=== PATIENT | female | born 1955 | race Caucasian/White ===

== ENCOUNTER 2024-10-25 11:29 | Outpatient (CLI) | payer MEDICARE, OTHER, MEDICAID ==
--- NOTE | 2024-10-25 12:37 | RADIOLOGY REPORT ---
EXAM: DI KNEE, COMP 4 VW MIN CLINICAL INDICATION: PAIN IN BILATERAL KNEES TECHNIQUE: DI KNEE, COMP 4 VW MIN Comparison: None FINDINGS/IMPRESSION: There is no evidence of acute fracture or dislocation. Moderate bilateral tricompartmental joint space narrowing. Bilateral chondrocalcinosis. The alignment is anatomical. There is no radiopaque foreign body.
--- NOTE | 2024-10-25 12:37 | RADIOLOGY REPORT ---
EXAM: DI KNEE, COMP 4 VW MIN, DI KNEE, COMP 4 VW MIN CLINICAL INDICATION: PAIN IN BILATERAL KNEES TECHNIQUE: DI KNEE, COMP 4 VW MIN, DI KNEE, COMP 4 VW MIN Comparison: None FINDINGS/IMPRESSION: There is no evidence of acute fracture or dislocation. Moderate bilateral tricompartmental joint space narrowing. Bilateral chondrocalcinosis. The alignment is anatomical. There is no radiopaque foreign body.
== END 2024-10-25 23:59 | disposition home or self-care (01) ==
LOC: RAD 11:29
PROVIDERS: ATTEND Family Medicine
DX: M11.262 Other chondrocalcinosis, left knee (principal); M11.261 Other chondrocalcinosis, right knee; M25.561 Pain in right knee; M25.562 Pain in left knee
CPT/HCPCS: 73564

== ENCOUNTER 2025-01-18 06:01 | Day surgery (SDC) | payer MEDICARE, MEDICAID ==
[2025-01-17 11:17] LABS: MEAN PLATELET VOLUME 8.4 FL (7.4-10.4); RED CELL DISTRIBUTION WIDTH 17.6 % (11.5-14.5)
[2025-01-17 11:24] LABS: CREATININE 1.02 MG/DL (0.40-0.90); TOTAL CARBON DIOXIDE 27.6 MMOL/L (24-32); eGFR 53 ML/MIN
[2025-01-17 11:27] LABS: INR 1.2 INR
[~2025-01-18] VITALS: Ht 165.1 cm; Wt 99.8 kg
--- NOTE | 2025-01-18 06:36 | ELECTROCARDIOGRAPH REPORT ---
[facility] Test Date: 2025-01-18 Test Time: 06:30:29 Pat Name: ARLEN PANG Department: [facility] Patient ID: [facility]-[id number] Room: Gender: F Behavioral Intervention Specialist: WESLY : 1955 Requested By: LISANDRA ZARAGOZA Order Number: [id number] Reading MD: Dr. MATILDE Zaragoza Measurements Intervals [place] Rate: 61 P: 0 RI: 0 QRS: -6 QRSD: 103 T: 4 QT: 481 QTc: 485 Interpretive Statements Atrial fibrillation Low voltage, extremity leads Electronically Signed On 01-18-2025 16:41:[address] MATILDE Zaragoza Please click the below link to view image of tracing.
[2025-01-18 06:57] VITALS: BP 113/51; PULSE 59; RESP 16; TEMP 97.8; O2SAT 98
[2025-01-18] MEDS ORDERED: MIDAZolam 1mg/ml 10ml vial IV ONE (07:05)
[2025-01-18] MEDS ORDERED: normal saline 1000ml 1,000 ML IV SCH (07:05)
[2025-01-18] MEDS ORDERED: amiodarone 150mg/dext, iso-os 100 ML IV ONE (07:05)
[2025-01-18] MEDS ORDERED: atropine 0.1mg/ml 10ml syringe IV ONE (07:05)
[2025-01-18] MEDS ORDERED: morphine 10mg/ml inj. IV ONE (07:05)
[2025-01-18] MEDS ORDERED: ASPI-611 PO (07:13)
[2025-01-18] MEDS ORDERED: LISI10TA27 PO (07:13)
[2025-01-18] MEDS ORDERED: APIX5TAB3 PO (07:13)
[2025-01-18] MEDS ORDERED: SOTA80TA46 PO (07:13)
[2025-01-18] MEDS ORDERED: INSU100V64 SQ (07:14)
[2025-01-18] MEDS ORDERED: CHOL500049 PO (07:14)
[2025-01-18] MEDS ORDERED: INSU100I41 SQ (07:14)
[2025-01-18] MEDS ORDERED: METF-1203 PO (07:14)
[2025-01-18] MEDS ORDERED: GLIM4TAB7 PO (07:14)
[2025-01-18] MEDS ORDERED: PIOG15TA67 PO (07:14)
[2025-01-18] MEDS ORDERED: INUL1TAB4 PO (07:14)
[2025-01-18] MEDS ORDERED: ROSU40TA89 PO (07:14)
[2025-01-18] MEDS ORDERED: LEVO50TA8 PO (07:14)
[2025-01-18] MEDS ORDERED: midazolam 1 mg/ML 2ml injection ONE ×3 (07:55→08:19)
[2025-01-18] MEDS ORDERED: fentaNYL/PF 50MCG/1 ML 2ML syringe ONE (07:55)
[2025-01-18 08:01] VITALS: RESP 16; O2SAT 98
[2025-01-18] MEDS ORDERED: atropine 0.1mg/ml 10ml syringe ONE (08:21)
--- NOTE | 2025-01-18 08:45 | CARDIOLOGY REPORT ---
DATE OF SERVICE: 01/18/2025 DICTATING PHYSICIAN: MATILDE Nance MD [employer] [employer] CALENDER OPERATOR: Dr. Nance. PRIMARY PHYSICIAN: Dr. Eder Pham. INDICATION: The patient is a 69-year-old postmenopausal obese female with diabetes, hypertension, hyperlipidemia, sleep apnea, and aortic regurgitation with paroxysmal atrial fibrillation, which started back in 04/2023 with sotalol 80 b.i.d. She spontaneously converted to normal sinus rhythm; however, AFib recurred in 11/2024 when her sotalol was increased to 120 in the morning, 80 in the a.m. and the patient has decided to proceed with electrical cardioversion because of her symptoms. Risks, benefits, and alternative options were discussed. Informed consent was obtained. The patient appears to have some underlying sick sinus syndrome. She does have sinus bradycardia. DESCRIPTION OF PROCEDURE: Anterior and posterior patch was used. Using biphasic electrical energy, 200 joules x 1, converted to normal sinus rhythm. The patient, however, did become bradycardic and required 0.5 mg of atropine. Currently, her heart rate is in the 60s. IMPRESSION: A 69-year-old female with paroxysmal atrial fibrillation, converted to normal sinus rhythm with one electrical cardioversion. RECOMMENDATIONS: * Continue sotalol 120 mg p.o. q.a.m. and 80 mg q.p.m. * Hold sotalol for heart rate less than 50. * Recommend event monitor in the next few months. If the patient continues to have persistent bradycardia, consider changing to flecainide or amiodarone. * The patient is also recommended for diet, weight loss, exercise, and appropriate treatment of sleep apnea. * The patient is recommended to continue to titrate her CPAP settings with her CPAP specialist. MATILDE Nance MD TID: [id number] RECEIPT: [id number] /[facility] cc: Eder Pham MD
[2025-01-18 08:50] VITALS: BP 96/45; PULSE 63; RESP 16; O2SAT 100
--- NOTE | 2025-01-18 08:56 | ELECTROCARDIOGRAPH REPORT ---
[facility] Test Date: 2025-01-18 Test Time: 08:50:40 Pat Name: ARLEN PANG Department: [facility] Patient ID: [facility]-[id number] Room: Gender: F Shield Installer: WESLY : 1955 Requested By: LISANDRA ZARAGOZA Order Number: [id number] Reading MD: Dr. MATILDE Zaragoza Measurements Intervals [place] Rate: 63 P: 24 CO: 196 QRS: -8 QRSD: 97 T: 14 QT: 485 QTc: 497 Interpretive Statements Sinus rhythm Borderline T abnormalities, anterior leads Borderline prolonged QT interval Electronically Signed On 01-18-2025 16:50:[address] MATILDE Zaragoza Please click the below link to view image of tracing.
[2025-01-18 09:05] VITALS: BP 97/46; PULSE 61; RESP 14; O2SAT 98
[2025-01-18 09:20] VITALS: BP 92/56; PULSE 61; RESP 14; O2SAT 97
[2025-01-18 09:35] VITALS: BP 97/63; PULSE 64; RESP 14; O2SAT 98
== END 2025-01-18 09:35 | disposition home or self-care (01) ==
LOC: SSTAY O 06:01
PROVIDERS: ATTEND Internal Medicine Cardiovascular Disease
DX: I48.0 Paroxysmal atrial fibrillation (principal); I48.92 Unspecified atrial flutter; I10 Essential (primary) hypertension; E78.5 Hyperlipidemia, unspecified; E11.9 Type 2 diabetes mellitus without complications; E03.9 Hypothyroidism, unspecified; I35.1 Nonrheumatic aortic (valve) insufficiency; G47.33 Obstructive sleep apnea (adult) (pediatric); Z79.01 Long term (current) use of anticoagulants; Z79.899 Other long term (current) drug therapy; Z79.82 Long term (current) use of aspirin; Z79.84 Long term (current) use of oral hypoglycemic drugs; Z79.890 Hormone replacement therapy; Z79.4 Long term (current) use of insulin; Z98.41 Cataract extraction status, right eye; Z98.42 Cataract extraction status, left eye; Z98.890 Other specified postprocedural states; Z82.49 Family history of ischemic heart disease and other diseases of the circulatory system; Z82.3 Family history of stroke
CPT/HCPCS: 36415; 80048; 85025; 85610; 92960; 93005; 99152; J0461; J2250; J3010; J7030